=== PATIENT | female | born 1950 | race Caucasian/White ===

== ENCOUNTER 2017-02-18 14:31 | Inpatient (IN) | payer MEDICARE ==
[~2017-02-18] VITALS: Ht 162.6 cm; Wt 80.6 kg
[2017-02-18] MEDS ORDERED: ATENOLOL50 MG PO (15:16)
[2017-02-18] MEDS ORDERED: METFORMIN HCL1000 MG PO (15:16)
[2017-02-18] MEDS ORDERED: PRAVASTATIN SOD40 MG PO (15:16)
[2017-02-18] MEDS ORDERED: NOVOLOG100 UNIT/2 SUB-Q (15:17)
[2017-02-18] MEDS ORDERED: OXYBUTYNIN CHLOR5 MG PO (15:18)
[2017-02-18] MEDS ORDERED: GABAPENTIN300 MG PO (15:19)
[2017-02-18] MEDS ORDERED: LANSOPRAZOLE30 MG PO (15:19)
[2017-02-18] MEDS ORDERED: QUINAPRIL HCL20 MG PO (15:19)
[2017-02-18] MEDS ORDERED: LANTUS100 UNITS/ SUB-Q (15:20)
--- NOTE | 2017-02-18 19:03 | NUR ---
PT ADMITTED AT THIS TIME, IV FLUIDS STARTED AND DINNER ORDER FOR PT ALSO AT THIS TIME. BEAR HUGGER PLACED DUE TO PT IS VERY COLD. NS BOLUS 0NE LITER INFUSING, PT C/O PAIN WITH THE ABX WHEN IT INFUSED, BUT NO REDNESS NOTED AT IV SITE. REMAINS AT THE BEDSIDE AT THIS TIME. PT CURRENTLY TALKING ON HER PHONE.
--- NOTE | 2017-02-18 19:45 | NUR ---
REPORT RECEIVED FROM KASSANDRA DEY. PT UP IN BED EATING DINNER. IN ROOM, NO COMPLAINTS AT THIS TIME.
--- NOTE | 2017-02-18 20:09 | NUR ---
LAB IN TO DRAW BLOOD.
--- NOTE | 2017-02-18 20:30 | NUR ---
CHACON PLACED, LABIA AND GORDON AREA VERY RED AND PAINFUL TO TOUCH, WHITE DISCHARGE NOTED FROM VAGINE. DR LEON CALLED, ORDER GIVEN FOR MICONAZOLE CREAM, PLACED TO VAGINAL AREA AND PT REPORTS SOME RELIEF BUT STILL C/O PAIN "INSIDE". WILL MONITOR. CHACON HAD RETURN OF 450ML CLOUDY URINE.
--- NOTE | 2017-02-18 21:00 | NUR ---
PT LYING IN BED, MOANING AND C/O PAIN IN PUBIC REGION. DR LEON CALLED, OKAY TO D/C CHACON. CHACON REMOVED, CATHETER TIP COVERED WITH PURULENT, BLOOD TINGED DISCHARGE. PT REPORTS IMMEDIATE RELIEF. TEMP PER CHACON TEMP PROBE AT THIS TIME WAS 98.0
--- NOTE | 2017-02-18 23:00 | NUR ---
PT UP TO BSC TO VOID, VOIDED 30ML ALSO INC SOME URINE INTO ATTENDS, MEDIUM AMOUNT URINE. PT REQUIRES ONE PERSON ASSIST, THEN BACK TO BED WITH BED ALARM ON, PT WILL TRY TO SLEEP AT THIS TIME.
--- NOTE | 2017-02-19 00:51 | NUR ---
UP TO BSC TO VOID 65ML CLOUDY URINE THEN BACK TO BED. STATES PAIN IN VAGINAL AREA IS "MUCH BETTER".
--- NOTE | 2017-02-19 01:40 | NUR ---
PT UP TO BSC TO VOID, BACK TO BED. REQUESTS MORE MICONAZOLE CREAM, APPLIED TO GORDON AREA.
--- NOTE | 2017-02-19 05:14 | NUR ---
UP TO BSC THEN BACK TO BED. MORE MICONAZOLE OINTMENT APPLIED TO VAGINAL AREA.
--- NOTE | 2017-02-19 07:40 | NUR ---
PT SITTING UP IN BED EATING BREAKFAST. PT DENIES PAIN, NAUSEA, AND SOB AT THIS TIME. PT ALERT AND ORIENTED X4.
--- NOTE | 2017-02-19 08:15 | NUR ---
PT UP TO BEDSIDE COMMODE, ABLE TO VOID SMALL AMOUNT. CHANGED ATTENDS THEY ARE SATURATED WITH URINE. GORDON CARE DONE, ANTIFUNGAL CREAM APPLIED, CLEAN ATTENDS PLACED, NEW GOWN PLACE. PT AMBULATED TO CHAIR INDEPENDENTLY WITH STAND BY. PT DID ORAL CARE, WASHED FACE AND HANDS, BRUSED HAIR. PT DENIES PAIN, NAUSEA, AND SOB AT THIS TIME.
--- NOTE | 2017-02-19 08:47 | NUR ---
IV SITES INTACT, NO REDNESS OR SWELLING NOTED, PT C/O IRRITATION WITH LEFT IV SITE, NO PAIN WITH FLUSH. PT AWAKE AND ALERT X4 SITTING UP IN CHAIR WATCHING TV. PT HAS CALL LIGHT WITHIN REACH. VITALS WNL AT THIS TIME.
--- NOTE | 2017-02-19 10:08 | NUR ---
pt up to commode with minimal assitance, pt had saturated attends was also able to void 175 ml urine into commode. pt alert and oriented x4.
--- NOTE | 2017-02-19 10:10 | NUR ---
pt passing large amounts of flatus when up to commode.
--- NOTE | 2017-02-19 11:37 | NUR ---
GORDON CARE DONE, BARRIER CREAM APPLIED, NO ATTENDS ON AT THIS TIME, CHUCKS UNDER PT.
--- NOTE | 2017-02-19 12:19 | NUR ---
IV SITES INTACT, PT DENIES PAIN AT SITES, NO SWELLING OR REDNESS NOTED. PT SITTING UP IN BED EATING LUNCH. PT DENIES SOB, NAUSEA, AND PAIN AT THIS TIME. SPOUSE IS AT THE BEDSIDE.
--- NOTE | 2017-02-19 13:22 | NUR ---
PT UP TO BEDSIDE COMMODE, ABLE TO VOID 200 ML INTO THE COMMODE ALSO INCONTINENT ON CHUCKS PAD. PT ABLE TO GET ONTO THE COMMODE WITH STANDBY ASSIST.
--- NOTE | 2017-02-19 15:40 | NUR ---
PT UP TO BEDSIDE COMMODE, ABLE TO VOID 325 ML, NO INCONTINENCE NOTED IN THE BED. PT C/O 10/13 HEADACHE, 500 MG TYLENOL GIVEN WELL ICE PACK FOR BACK OF NECK.
--- NOTE | 2017-02-19 16:05 | NUR ---
FULL REPORT GIVEN TO KRYSTAL DEY. ALL QUESTIONS ANSWERED.
--- NOTE | 2017-02-19 16:10 | NUR ---
PT TRANSFERED TO ROOM 119, ALL PERSONAL BELONGINGS WENT WITH PT, INCLUDING HER SPOUSE.
--- NOTE | 2017-02-19 16:18 | NUR ---
pt arrived to room 119 on medical floor. spouse at bedside. PASSENGER SCREENER assisted pt to BSC on arrival to room.
--- NOTE | 2017-02-19 17:27 | NUR ---
CCU TRANSFER THIS EVENING. PT HAS SWOLLEN PERINEAL AREA. DESITIN AND MICONAZOLE CREAM ORDERED WITH MONISTAT VAGINAL SUPPOS. SBA TO BSC. ROOM AIR. ACCU CHECKS. NS @ 65. CHOPPED DIET D/T MISSING TEETH. DR MENDOZA CONSULTING. ROCEPHINE DAILY.
--- NOTE | 2017-02-19 17:59 | NUR ---
PT ASKED TO USE BEDSIDE COMMODE AFTER VITALS WERE TAKEN, THEN RETURNED TO BED. PT ALSO ASKED FOR MORE COFFEE
--- NOTE | 2017-02-19 19:05 | NUR ---
RECEIVED REPORT FROM DAY SHIFT RN. PATIENT IS RESTING IN BED VISITING WITH FRIENDS. PATIENT HAS NO COMPLAINTS OR REQUESTS AT THIS TIME. CALL MEI SHERMAN.
--- NOTE | 2017-02-19 20:54 | EKG ---
[facility] [address] [facility] [place] [address] Signed Sinus bradycardia Right bundle branch block Abnormal ECG No previous ECGs available Confirmed by VILLA LEON MD ([id number]) on 02/19/2017 8:54:03 PM Electronically Signed By: VILLA LEON MD 02/19/[id number] PATIENT NAME: WIL DUGGAN Electrocardiogram DATE OF : 48 PHYSICIAN: VILLA LEON MD REPORT #: [id number] REPORT IS CONFIDENTIAL AND NOT TO BE RELEASED WITHOUT AUTHORIZATION
--- NOTE | 2017-02-19 21:20 | NUR ---
PATIENT ASSESMENT COMPLETED. PATIENTS EVENING MEDICATIONS GIVEN PER ORDER. PATIENT COMPLAINS OF A HEADACHE AND GENERALIZED PAIN. PATIENT GIVEN PRN PAIN TYLENOL PER ORDER. PATIENT HAS REDDENED GORDON AREA, GORDON AREA CARE PERFORMED AND MEDICATIONS ADMINISTERED PER DIRECTIONS. PATIENT IS A PIVOT TRANSFER INDEPENDENTLY TO [facility] [place]. PATIENTS SECONDARY SHAYY REMOVED PER PATIENT REQUEST IT WAS "ITCHING AND BURNING". EDUCATED PATIENT THAT IF HER PRIMARY IV THAT IS INFUSING FLUIDS STOPS WORKING WE WILL HAVE TO START A NEW ONE. PATIENT VERBALIZED UNDERSTANDING. PATIENT IS AAO X3. PATIENTS VITALS TAKEN AND RECORDED. PATIENT DENIES ANY FURTHER NEEDS AT THIS TIME. CALL LIGHT IN REACH.
--- NOTE | 2017-02-19 22:58 | NUR ---
PATIENTS BSC EMPTIED. PATIENT DENIES ANY PAIN OR NAUSEA AT THIS TIME. PATIENT DENIES ANY FUTHER NEEDS AT THIS TIME. CALL LIGHT IN REACH.
--- NOTE | 2017-02-20 01:35 | NUR ---
PATIENT IS RESTING IN BED ON HER RIGHT SIDE. BREATHING IS EVEN AND UNLABORED, RR 17. CALL LIGHT IN REACH.
--- NOTE | 2017-02-20 03:45 | NUR ---
PATIENT CALLED FRO ASSISTANCE. PATIENTS BEDDING CHANGED. PATIENTS BSC EMPTIED. GORDON CARE PERFORMED. PATIENT DENIES ANY PAIN AT THIS TIME. PATIENT DENIES ANY FURTHER NEEDS AT THIS. PATIENT IS BACK IN BED RESTING. CALL LIGHT IN REACH.
--- NOTE | 2017-02-20 05:06 | NUR ---
PATIENT RESTED WELL FOR THE MAJORITY OF THE SHIFT. PATIENT IS INDEPENDENT TO THE BSC. PATIENTS URINE OUTPUT IS QS. PATIENT RECEIVED X1 PRN PAIN MEDICATION FOR GENERALIZED PAIN. PATIENT IS ON AN ADA, 1800 ROB LIMIT, AND CHOPPED BECAUSE OF MISSING DENTURES. PATENT HAS CREAMS IN KITS LIST FOR GORDON CARE. PATIENT IS AAOX3 AND USES CALL LIGHT APPROPRIATELY. PATIENT WAS ABLE TO EAT PUDDING AND DENIED ANY NAUSEA.
--- NOTE | 2017-02-20 06:02 | NUR ---
PATIENTS VITALS TAKEN AND RECORDED. PATIENT RATES PAIN AT A 3/10, GENERALIZED. PATIENT DENIES THE NEED FOR PAIN MEDICATION AT THIS TIME. PATIENT DENIES ANY FURTHER NEEDS CALL LIGHT IN REACH.
--- NOTE | 2017-02-20 07:22 | NUR ---
RECIEVED BEDSIDE REPORT FROM TIBURCIO INGRAM AND TIBURCIO BARNETT. PT RESTING QUIETLY, BREATHING EVEN AND UNLABORED.
--- NOTE | 2017-02-20 07:57 | NUR ---
PT AWAKE AND ALERT. ASSESSMENT BY RN AND MED STUDENT. PT REPORTS FEELING "BETTER" SINCE YESTERDAY, ESPECIALLY WITH APPLICATION OF VAGINAL CREAMS. IV PATENT. VOIDING WELL. DISCUSSED PLAN OF CARE, INCLUDING GETTING UP FOR A SHOWER AFTER BREAKFAST.
--- NOTE | 2017-02-20 09:42 | NUR ---
PT WALKED TO BATHROOM, SHOWERED, AND THEN RETURNED TO THE CHAIR. PT ASKED FOR A CUP OF COFFEE
--- NOTE | 2017-02-20 09:52 | NUR ---
PT REPORTS PAIN AT IV SITE. IV SITE IS RED, SLIGHTLY SWOLLEN, AND TENDER TO TOUCH. IV SALINE LOCKED FOR SHOWER. AFTER SHOWER, IV REMOVED. MD AWARE, ADVISED TO LEAVE IV OUT PENDING DISCHARGE.
[2017-02-20] MEDS ORDERED: CEFPODOXIME PR200 MG PO (10:02)
[2017-02-20] MEDS ORDERED: LANTUS100 UNITS/ SUB-Q (10:02)
[2017-02-20] MEDS ORDERED: NOVOLOG100 UNIT/2 SUB-Q ×3 (10:06→10:20)
[2017-02-20] MEDS ORDERED: MICONAZOLE NITR45 GM VAGINAL (10:06)
[2017-02-20] MEDS ORDERED: MICONAZOLE 7100 MG PV (10:07)
--- NOTE | 2017-02-20 10:55 | NUR ---
PT DISCHARGE INSTRUCTIONS GIVEN, DISCUSSED DM MANAGEMENT AND TRACKING BG LEVELS. PT VERBALIZED UNDERSTANDING OF DIET, HTN MANAGEMENT, AND DM MANAGEMENT. PT VERBALIZED UNDERSTANDING OF DISCHARGE INSTRUCTIONS. PT AND SPOUSE WHEELED OUT TO THEIR VEHICLE.
== END 2017-02-20 10:45 | disposition home or self-care (01) | DRG 872 ==
LOC: ED 14:31 → CCU 17:42 → MS 17:42
PROVIDERS: ADMIT Internal Medicine
DX: A41.9 Sepsis, unspecified organism (principal); N39.0 Urinary tract infection, site not specified; R65.20 Severe sepsis without septic shock; R19.7 Diarrhea, unspecified; E11.649 Type 2 diabetes mellitus with hypoglycemia without coma; Z79.4 Long term (current) use of insulin; E78.5 Hyperlipidemia, unspecified; K21.9 Gastro-esophageal reflux disease without esophagitis; E11.42 Type 2 diabetes mellitus with diabetic polyneuropathy; R39.15 Urgency of urination; B37.3 Candidiasis of vulva and vagina; N30.90 Cystitis, unspecified without hematuria; B96.20 Unspecified Escherichia coli [E. coli] as the cause of diseases classified elsewhere; I35.0 Nonrheumatic aortic (valve) stenosis; I10 Essential (primary) hypertension; E83.42 Hypomagnesemia; E87.6 Hypokalemia
CPT/HCPCS: 36415; 51702; 71010; 80053; 81001; 83036; 83605; 83735; 84484; 85025; 87040; 87077; 87088; 87186; 87493; 93005; 93010; J0696; J1650; J3475; J7030

== ENCOUNTER 2017-03-04 14:45 | Emergency (ER) | payer MEDICARE ==
[~2017-03-04] VITALS: Ht 162.6 cm; Wt 80.3 kg
[~2017-03-04 14:45] MED LIST: ATENOLOL50 MG PO; CEFPODOXIME PR200 MG PO; GABAPENTIN300 MG PO; LANSOPRAZOLE30 MG PO; LANTUS100 UNITS/ SUB-Q; METFORMIN HCL1000 MG PO; MICONAZOLE 7100 MG PV; MICONAZOLE NITR45 GM VAGINAL; NOVOLOG100 UNIT/2 SUB-Q; OXYBUTYNIN CHLOR5 MG PO; PRAVASTATIN SOD40 MG PO; QUINAPRIL HCL20 MG PO
[2017-03-04] MEDS ORDERED: KEFLEX500 MG PO (18:11)
[2017-03-04] MEDS ORDERED: PYRIDIUM200 MG PO (18:11)
== END 2017-03-04 18:43 | disposition home or self-care (01) ==
LOC: ED 14:45
DX: N12 Tubulo-interstitial nephritis, not specified as acute or chronic (principal); E11.9 Type 2 diabetes mellitus without complications; I10 Essential (primary) hypertension; Z85.3 Personal history of malignant neoplasm of breast; Z90.710 Acquired absence of both cervix and uterus; Z90.49 Acquired absence of other specified parts of digestive tract; Z90.11 Acquired absence of right breast and nipple; Z88.1 Allergy status to other antibiotic agents; Z88.2 Allergy status to sulfonamides; Z88.8 Allergy status to other drugs, medicaments and biological substances; Z88.0 Allergy status to penicillin; Z79.4 Long term (current) use of insulin; Z79.899 Other long term (current) drug therapy
CPT/HCPCS: 74177; 80053; 81001; 83690; 85025; 87077; 87088; 87186; 96374; 96375; 99284; J0696; J1885; J2405; Q9967